=== PATIENT | male | born 1935 | race Caucasian/White ===

== ENCOUNTER 2018-05-22 06:13 | Outpatient (CLI) | payer MEDICARE, OTHER | END 2018-05-22 06:14 | disposition short-term general hospital (02) | LOC: EMS 06:13 | PROVIDERS: ATTEND Surgery | DX: S00.12XA Contusion of left eyelid and periocular area, initial encounter (principal); W18.39XA Other fall on same level, initial encounter; Y93.89 Activity, other specified; Y92.003 Bedroom of unspecified non-institutional (private) residence as the place of occurrence of the external cause; R53.1 Weakness; R42 Dizziness and giddiness | CPT/HCPCS: A0425; A0429; A0888 ==